=== PATIENT | male | born 1995 | race Asian ===

== ENCOUNTER 2024-03-19 10:03 | Emergency (ER) | payer SELFPAY ==
[~2024-03-19] VITALS: Ht 193 cm; Wt 60.0 kg
[2024-03-19 10:36] VITALS: O2SAT 99
[2024-03-19] MEDS: AMOXICILLIN/POTASSIUM CLAVULANATE 875/125MG TAB PO ONE (11:00)
[2024-03-19] MEDS: HYDROCODONE/ACETAMINOPHEN 5/325MG TABLET PO ONE (11:01)
[2024-03-19] MEDS: KETOROLAC 30MG/ML VIAL IM ONE (11:01)
[2024-03-19] MEDS ORDERED: IBUP-2030 MT (11:07)
[2024-03-19] MEDS ORDERED: AMOX1TAB16 MT (11:07)
[2024-03-19 11:13] VITALS: BP 140/78; PULSE 72; RESP 16; TEMP 36.78072; O2SAT 99
== END 2024-03-19 11:12 | disposition home or self-care (01) ==
LOC: ER 10:34
DX: K04.7 Periapical abscess without sinus (principal); K08.89 Other specified disorders of teeth and supporting structures
CPT/HCPCS: 99283; 96372; J1885